=== PATIENT | female | born 1975 | race Caucasian/White ===

== ENCOUNTER 2016-10-23 19:58 | Emergency (ER) | payer OTHER ==
[2016-10-23] MEDS ORDERED: IBUPROFEN 600 MG TABLET (FP) PO ONE ×2 (20:09→20:29)
[2016-10-23] MEDS ORDERED: DEXAMETHASONE LIQUID 0.5 MG/5 ML 240 ML BULK BOTTLE PO ONE (20:09)
[2016-10-23 20:11] VITALS: BP 128/79; PULSE 118; TEMP 98.1; BMI 25.2
[2016-10-23] MEDS ORDERED: DEXAMETHASONE SOD PHOSPHATE 10 MG/1 ML VIAL ONE (20:28)
--- NOTE | 2016-10-23 20:32 | PDOC ---
History of Present Illness - General Chief Complaint: Sore Throat Stated Complaint: SENT BY PCP INFECTION Time Seen by Provider: 10/23/16 20:05 History Source: Patient - History of Present Illness Timing/Duration: reports: other Severity: reports: severe Associated Symptoms: reports: fever/chills, sore throat. denies: cough, earache , facial pain, headache, nasal congestion, nasal drainage Past History - Past Medical History Allergies/Adverse Reactions: Allergies Allergy/AdvReac Type Severity Reaction Status Date / Time No Known Allergies Allergy Verified 10/23/16 20:08 Home Medications: Ambulatory Orders Adalimumab [Humira] 10 mg SQ ASDIR 10/23/16 Amoxicillin - [Amoxicillin 500mg Capsule -] 500 mg PO BID #20 capsule 10/23/16 Prednisone 5 mg PO BID 10/23/16 Other medical history: RA - Psycho/Social/Smoking Cessation Hx Suicidal Ideation: No Smoking History: Never smoked Review of Systems - Review of Systems Constitutional: Yes: Chills, Fever HEENTM: Yes: Throat Pain Respiratory: No: Cough *Physical Exam - Vital Signs Last Vital Signs Temp Pulse Resp BP Pulse Ox 98.1 F 118 H 18 128/79 96 10/23/16 20:09 10/23/16 20:09 10/23/16 20:09 10/23/16 20:09 10/23/16 20:09 - Physical Exam General Appearance: Yes: Appropriately Dressed. No: Apparent Distress HEENT: positive: Normal Voice, TMs Normal, Tonsillar Erythema (w/ mild b/l tonsillar enlargament, no uvular deviation, no exudatyes). negative: Tonsillar Exudate Neck: positive: Supple. negative: Lymphadenopathy (R), Lymphadenopathy (L) Respiratory/Chest: negative: Respiratory Distress Integumentary: positive: Dry, Warm Neurologic: positive: Fully Oriented, Alert, Normal Mood/Affect Medical Decision Making - Medical Decision Making 10/23/16 20:27 41-year-old female history of rheumatoid arthritis on humira, here with sore throat with dysphagia 1 month. Developed fever of 102 last night. No ear pain , cough or unexplained weight loss. Patient is a non-smoker. Patient went to urgent care center today and had negative strep, neg flu, negative mono and negative chest x-ray (has paperwork on her person), but states she was told to come to the ER for ? IV antibiotics. Pt well-appearing and stable with increased erythema to posterior pharynx w/ minimal b/l tonsillar enlargement w/ no exudates and no e/o [employer] at this time. Possibly viral, will rpt rapid strep here and give motrin and decadron. Anticipate discharge and ENT f/u 10/23/16 20:38 Rapid strep positive here. 1st dose abx given in ED. Rpt HR 100 on my reassessment. Dc w/ abx and ENT f/u as needed 10/23/16 21:03 *DC/Admit/Observation/Transfer Diagnosis at time of Disposition: Strep pharyngitis - Discharge Dispostion Disposition: HOME Condition at time of disposition: Improved - Prescriptions Prescriptions: Amoxicillin - [Amoxicillin 500mg Capsule -] 500 mg PO BID #20 capsule - Referrals Referrals: Ramo Mendenhall MD [Staff Physician] - - Patient Instructions Printed Discharge Instructions: Strep Throat Additional Instructions: Take antibiotics as prescribed and follow-up with ENT as needed - Post Discharge Activity Work/School Note: Back to Work
[2016-10-23] MEDS ORDERED: AMOXICILLIN 500 MG CAPSULE (FP) PO ONE (20:37)
[2016-10-23] MEDS ORDERED: IBUPROFEN 100 MG/5 ML UNIT DOSE CUPS ONE (20:38)
[2016-10-23] MEDS ORDERED: AMOXICILLIN 250 MG CAPSULE ONE (20:45)
== END 2016-10-23 20:49 | disposition home or self-care (01) ==
LOC: JERFT 19:58
DX: J02.0 Streptococcal pharyngitis (principal); B95.0 Streptococcus, group A, as the cause of diseases classified elsewhere; M06.80 Other specified rheumatoid arthritis, unspecified site
CPT/HCPCS: 87070; 87430; 99281-25